=== PATIENT | female | born 1995 | race Caucasian/White ===

== ENCOUNTER 2020-04-11 10:03 | Inpatient (IN) | payer MEDICAID ==
[~2020-04-11] VITALS: Ht 160 cm; Wt 116.8 kg
[2020-04-11] VITALS (51 sets, daily range): BP systolic 84–163; BP diastolic 50–101; PULSE 81–145; TEMP 97.7–100
--- NOTE | 2020-04-11 09:30 | NUR ---
Pt arrives on unit ambulatory with spouse. State regular ctx throughout the night that increased in frequency and intensity since 0700. Changed into a clean gown. EFM and toco applied. Admission assessment completed. SVE per this RN / with bloody show. Dr. Guerrero notified. Orders for admission. IV started in LF. Labs drawn. Pt denies epidural or pain meds at this time. Consents signed. Pt updated on POC. Bed locked in low position. Call light within reach. No questions or concerns at this time.
[2020-04-11] MEDS ORDERED: VALTREX 50500 MG/TAB PO (10:15)
[2020-04-11] MEDS ORDERED: PRENATAL TABLET PO (10:16)
[2020-04-11] MEDS ORDERED: ONE DAILY MULTI1 TA1 (10:16)
[2020-04-11] MEDS ORDERED: MAGNESIUM ELEME30 MG PO (10:17)
[2020-04-11 10:38] LABS: BASO # 0.1 (0.0-0.2); BASO % 0.4 % (0.0-2.0); EOS # 0.1 (0.0-0.7); EOS % 0.6 % (0-4.0); GRAN # 8.3 (1.4-6.5); GRAN % 69.6 % (42.2-75.2); HEMATOCRIT 40.8 % (37.0-47.0); HEMOGLOBIN 12.9 g/dl (12.5-16.0); LYMPH # 2.4 (1.2-3.4); LYMPH % 20.1 % (20.0-51.0); MEAN CELL VOLUME 104 fl (80.0-100.0); MEAN CORPUSCULAR HEMOGLOBIN 33 pg (27.0-31.0); MEAN CORPUSCULAR HGB CONC 32 g/dl (33.0-37.0); MEAN PLATELET VOLUME 9.5 fl (7.4-10.4); MONO % 8.3 % (1.7-9.3); PLATELET COUNT 255 K/mm3 (130-400); RED BLOOD COUNT 3.91 M/mm3 (4.10-5.30)
--- NOTE | 2020-04-11 10:55 | NUR ---
Reactive FHR strip obtained. Pt taken off monitors to [facility].
--- NOTE | 2020-04-11 14:20 | NUR ---
Pt sitting at EOB for epidural placement. Difficulty tracing FHR due to maternal position. RN at bedside adjusting FHR. FHR audible.
--- NOTE | 2020-04-11 22:50 | NUR ---
2119- PT COMPLETE/O, SITTING HIGH FOWLERS TO LABOR DOWN. 2152- PT COMPLETE/+2, BEGINS PUSHING WITH THIS NURSE. 2203- ARMAAN CHOWDHURY'Wiliam, 225MLS OUT. 2216- DR. ÁLVAREZ CALLED FOR DELIVERY. 2231- DR. ÁLVAREZ IN ROOM FOR DELIVERY. 2235-SPONTANEOUS DELIVERY OF VIABLE BABY GIRL, NUCHAL X1, BABY TO MOTHER'S CHEST, BABY CARES ASSUMED BY DEANNA FARIA. 2241- SPONTANEOUS DELIVERY OF INTACT PLACENTA, PITOCIN STARTED AT 333MLS/HR. DR ÁLVAREZ BEGINS REPAIR OF 2ND DEGREE LACERATION. 2249- RECOVERY STARTED.
[2020-04-12] VITALS (8 sets, daily range): BP systolic 112–136; BP diastolic 56–83; PULSE 83–131; TEMP 97.5–98.9
--- NOTE | 2020-04-12 10:43 | NUR ---
Rests in bed, alert. Ibuprofen 800 mg given per request and as ordered.
--- NOTE | 2020-04-12 13:00 | NUR ---
Rests in bed, alert. This nurse helping mom with . 1310 Tylenol 650 mg given per request and as ordered.
[2020-04-13 08:30] VITALS: BP 135/78; PULSE 95; TEMP 97.8
--- NOTE | 2020-04-13 08:30 | NUR ---
Sits up in bed eating breakfast. Ibuprofen 800 mg given per request and as ordered.
[2020-04-13] MEDS ORDERED: IBU800 M1 PO (13:07)
--- NOTE | 2020-04-13 13:30 | NUR ---
Rests in bed, alert. Discharge instructions given, verbalizes understanding.
== END 2020-04-13 14:15 | disposition home or self-care (01) | DRG 807 ==
LOC: LDRO 10:03 → LDR 10:10 → OB 04-12 02:10
PROVIDERS: ADMIT Obstetrics & Gynecology
PROC: 10907ZC Drainage of Amniotic Fluid, Therapeutic from Products of Conception, Via Natural or Artificial Opening (ICD-10-PCS; principal; 2020-04-11)
PROC: 10E0XZZ Delivery of Products of Conception, External Approach (ICD-10-PCS; 2020-04-11)
PROC: 0KQM0ZZ Repair Perineum Muscle, Open Approach (ICD-10-PCS; 2020-04-11)
DX: O98.32 Other infections with a predominantly sexual mode of transmission complicating childbirth (principal); Z37.0 Single live birth; A60.00 Herpesviral infection of urogenital system, unspecified; O99.344 Other mental disorders complicating childbirth; O99.02 Anemia complicating childbirth; D64.9 Anemia, unspecified; Z3A.39 39 weeks gestation of pregnancy; O99.214 Obesity complicating childbirth; E66.9 Obesity, unspecified; O70.1 Second degree perineal laceration during delivery; O36.63X0 Maternal care for excessive fetal growth, third trimester, not applicable or unspecified; F32.9 Major depressive disorder, single episode, unspecified
CPT/HCPCS: J2590; J2795; J7120

== ENCOUNTER 2022-10-12 00:34 | Emergency (ER) | payer MEDICAID ==
[~2022-10-12] VITALS: Ht 162.6 cm; Wt 111.4 kg
[~2022-10-12 00:34] MED LIST: IBU800 M1 PO; MAGNESIUM ELEME30 MG PO; MOTRIN 800800 MG/TAB PO; ONE DAILY MULTI1 TA1; PRENATAL TABLET PO; VALTREX 50500 MG/TAB PO; ZOLOFT 50MG50 MG PO
[2022-10-12 01:09] LABS: BASO % 0.2 % (0.0-2.0); EOS # 0.2 K/mm3 (0.0-0.7); EOS % 1.1 % (0.0-4.0); GRAN # 13.4 K/mm3 (1.4-6.5); GRAN % 77.2 % (42.2-75.2); HEMOGLOBIN 13.5 g/dl (12.5-16.0); LYMPH # 2.8 K/mm3 (1.2-3.4); LYMPH % 15.9 % (20.0-51.0); MEAN CELL VOLUME 91 fl (80.0-100.0); MEAN CORPUSCULAR HEMOGLOBIN 32 pg (27-31); MEAN CORPUSCULAR HGB CONC 35 g/dl (33.0-37.0); MEAN PLATELET VOLUME 8.8 fl (7.4-10.4); MONO # 0.9 K/mm3 (0.1-0.6); MONO % 5.1 % (1.7-9.3); PLATELET COUNT 339 K/mm3 (130-400); RED BLOOD COUNT 4.28 M/mm3 (4.10-5.30); REDCELL DISTRIBUTION WIDTH-CV 12.8 % (11.5-14.5)
[2022-10-12 01:28] LABS: ALBUMIN 3.4 gm/dL (3.5-5.0); BILIRUBIN,TOTAL 0.8 mg/dL (0.2-1.2); CALCIUM 9.3 mg/dL (8.4-10.2); CREATININE, serum 0.82 mg/dL (0.57-1.11); POTASSIUM 4.1 mmol/L (3.5-4.5); TOTAL PROTEIN 7.7 gm/dL (6.2-8.1)
[2022-10-12 02:35] LABS: URINE APPEARANCE Clear (CLEAR/HAZY); URINE COLOR Yellow (YELLOW)
[2022-10-12 02:36] LABS: URINE BLOOD 3+ (NEGATIVE); URINE GLUCOSE Negative (NEGATIVE); URINE KETONE Negative (NEGATIVE); URINE NITRATE Negative (NEGATIVE); URINE PROTEIN(semi-quant) TRACE (NEGATIVE); URINE UROBILINOGEN 0.2 E.U/dL (0.2-1.0)
[2022-10-12 02:42] LABS: MUCOUS Present (NOT PRESENT); URINE BACTERIA Occasional /hpf (NONE SEEN); URINE RBC 20-50 /hpf (0-2)
[2022-10-12 03:45] LABS: COLLECTION METHOD CATHETER
[2022-10-12] MEDS ORDERED: OMNICEF 300MG300 MG PO (03:46)
[2022-10-12] MEDS ORDERED: ZOFRAN ODT4 MG PO (03:46)
[2022-10-12 04:16] VITALS: BP 109/68; PULSE 78; TEMP 97
== END 2022-10-12 04:24 | disposition home or self-care (01) ==
LOC: COL.ER 00:34
PROVIDERS: Nurse Practitioner Primary Care
DX: K52.9 Noninfective gastroenteritis and colitis, unspecified (principal); N39.0 Urinary tract infection, site not specified; E66.9 Obesity, unspecified; R00.0 Tachycardia, unspecified; Z28.310 Unvaccinated for COVID-19
CPT/HCPCS: J0696; J1885; J2270; J2405; J7120; Q9967